=== PATIENT | female | born 1995 | race Caucasian/White ===

== ENCOUNTER 2017-05-28 07:08 | Day surgery (SDC) | payer OTHER ==
[2017-05-28] VITALS (12 sets, daily range): BP systolic 95–147; BP diastolic 53–80; PULSE 74–90; RESP 14–22; Ht 154.9 cm; Wt 132.0 kg
[~2017-05-28] VITALS: Ht 154.9 cm; Wt 132.0 kg
--- NOTE | 2017-05-28 05:46 | HP ---
DATE OF ADMISSION: 05/28/2017 HISTORY OF PRESENT ILLNESS: This 17-year-old female patient seen in the office initially in June 2013 complaining of nasal obstruction and possible sinusitis. The patient treated medically at that time. Recommended to have a CAT scan, which showed chronic sinusitis. Surgery was recommended at that time, however declined. The patient returned to the office January 2017 with increase in symptoms and noted to have obstructive nasal sinus polyposis. The patient was treated with antihistamine, decongestants and systemic hydrocortisone slight shrinkage of polyps. Repeat CAT scan at this time demonstrates severe pansinusitis with involvement of the maxillary and ethmoid sinuses as well as deviated septum. The patient is now admitted to the hospital for corrective nasal sinus surgery. ALLERGIES: ALLERGIES NONE. MEDICATIONS: Synthroid. PAST MEDICAL HISTORY: Medical conditions: Hypothyroid. Prior surgery: Clotting disorders. FAMILY HISTORY, HABITS AND REVIEW OF SYSTEMS: Negative. PHYSICAL EXAMINATION: GENERAL: Well-developed, well-nourished female patient is in no acute distress. HEENT: Head is normocephalic. No masses or deformities. Ears and tympanic membranes normal. Nose: Obstructive and extensive nasal sinus polyposis with septal deviation noted. Oropharynx is clear. NECK: No masses or adenopathy. CHEST: Clear to P and A. HEART: Regular sinus rhythm without murmur. ABDOMEN: Soft. Bowel sounds are normal. No masses or organomegaly. EXTREMITIES: Full range of motion without deformity. NEUROLOGIC: Physiologic. PELVIC/RECTAL: Not done. IMPRESSION: Chronic sinusitis with septal deviation. PLAN:: Admitted for surgery. Dictated By: Shahid Hannah MD /chasity/juvenal /Document#: [id number]
[~2017-05-28 07:08] MED LIST: ACETAMINOPHEN 1000 MG/100 ML IVPB ONE; ONDANSETRON 4 MG INJ ONE
[2017-05-28] MEDS ORDERED: LEVO125T75 PO (08:12)
[2017-05-28] MEDS ORDERED: GLIP-95 PO (08:13)
[2017-05-28] MEDS ORDERED: SITA1TBM7 PO (08:13)
[2017-05-28] MEDS ORDERED: COCAINE 4% 4 ML TOP ONE (08:57)
[2017-05-28] MEDS ORDERED: LIDOCAINE 2%/EPI (MDV) 20ML INJ ONE (08:57)
[2017-05-28] MEDS ORDERED: PROPOFOL 20 ML ONE (09:07)
[2017-05-28] MEDS ORDERED: ROCURONIUM 50 MG INJ ONE (09:07)
[2017-05-28] MEDS ORDERED: LIDOCAINE 2% (SDV) 5 ML INJ ONE (09:07)
[2017-05-28] MEDS ORDERED: DEXAMETHASONE 4 MG/ML 1 ML INJ ONE (09:09)
[2017-05-28] MEDS ORDERED: FENTAnyl 50 MCG/ML VIAL ONE ×3 (09:09→10:29)
[2017-05-28] MEDS ORDERED: LABETALOL HCL 20MG INJ ONE (09:22)
[2017-05-28] MEDS ORDERED: BACITRACIN/POLYMYXIN 28.35 GM OINT TOP ONE (09:37)
[2017-05-28] MEDS ORDERED: NEOMYC/POLYMYX/BACIT 30 GM OINT ONE (09:37)
[2017-05-28] MEDS ORDERED: GLYCOPYRROLATE 0.4 MG INJ ONE (10:13)
[2017-05-28] MEDS ORDERED: NEOSTIGMINE 3 MG/3 ML SYRINGE ONE (10:13)
[2017-05-28] MEDS ORDERED: LABETALOL HCL 20MG INJ IV PRN (10:30)
[2017-05-28] MEDS ORDERED: MEPERIDINE 25 MG INJ IV PRN (10:30)
[2017-05-28] MEDS ORDERED: METOCLOPRAMIDE 10 MG INJ IV PRN (10:30)
[2017-05-28] MEDS ORDERED: hydrALAzine 20 MG INJ IV PRN (10:30)
[2017-05-28] MEDS ORDERED: DIPHENHYDRAMINE 50 MG INJ IV PRN (10:30)
[2017-05-28] MEDS ORDERED: EPHEDrine SULFATE 50 MG/5 ML SYG IV PRN (10:30)
[2017-05-28] MEDS ORDERED: FENTAnyl 50 MCG/ML VIAL IV PRN ×2 (10:30)
[2017-05-28] MEDS ORDERED: OXYCODONE/ACETAMINOPHEN (5/325) TAB PO PRN ×2 (10:30)
[2017-05-28] MEDS ORDERED: ONDANSETRON 4 MG INJ IV PRN (10:30)
[2017-05-28] MEDS ORDERED: HYDROmorphONE (0.2 MG/ML) 10ML SYG IV PRN ×3 (10:30)
[2017-05-28] MEDS: FENTAnyl 50 MCG/ML VIAL IV PRN ×2 (10:42→10:47)
[2017-05-28] MEDS ORDERED: HYDROCODONE/APAP (7.5/325) TAB PO PRN (11:00)
--- NOTE | 2017-06-01 04:46 | OPR ---
DATE OF OPERATION: 05/28/2017 PREOPERATIVE DIAGNOSES: Septal deviation, turbinate hypertrophy, sinonasal polyposis. POSTOPERATIVE DIAGNOSES: Septal deviation, turbinate hypertrophy, sinonasal polyposis. PROCEDURES PERFORMED: Septoplasty with turbinate reduction, nasal polypectomy, bilateral endoscopic sinus surgery carried out using the microdebrider as follows: Anterior posterior ethmoid endoscopic sinus surgery and bilateral maxillary sinus surgery, bilateral frontal sinus surgery. ESTIMATED BLOOD LOSS: Was 5-10 mL. COMPLICATIONS: None. OPERATIVE PROCEDURE: The patient was brought to the operating room under parenteral sedation, general oral endotracheal anesthesia with the patient in the supine position, sterile sheets and drapes applied. The nose was anesthetized topically with 5 percent cottonoid cocaine and xylocaine 1 percent, epinephrine 1:100,000 injectable. The polyps were removed from both middle meatus using snare and Kristopher forceps. The inferior turbinate bones were then lightly crushed and outfractured. A left septal hemitransfixion incision was made. Septal flaps were elevated exposing the quadrilateral cartilage and the perpendicular plate of the ethmoid and vomer bones. The quadrilateral was detached from the crest of the premaxilla and from the bony cartilaginous junction. Vertical stripes were carried out anterior to posterior to correct cartilaginous obstruction. A vomerine spur on the left was mobilized with a Walsham forceps and brought to the midline. The septal compartment was then suctioned, and the incision closed with interrupted 4-0 chromic. Then using the microdebrider on the left side extensive polyposis was carried out with removal of polyps from the middle meatus, anterior and posterior ethmoid sinus cells, nasal frontal recess, and the ostium of the left maxillary sinus. A comparable procedure was then performed on the right side again using the microdebrider with extensive polypectomy and removal of polyps from the anterior posterior ethmoid sinuses, nasal frontal recess and right maxillary sinus. The nose was then suctioned. The sinus cavities were packed with bacitracin-impregnated nasal pore sponge. A drip pad was applied and the procedure terminated. The patient was awakened, extubated in the operating room and returned to recovery in excellent condition. Dictated By: Shahid Hannah MD /chasity/cata /Document#: [id number]
== END 2017-05-28 12:15 | disposition home or self-care (01) ==
LOC: SDS 07:08
PROVIDERS: ATTEND Otolaryngology Otolaryngology/Facial Plastic Surgery
DX: J34.2 Deviated nasal septum (principal); J34.3 Hypertrophy of nasal turbinates; E03.9 Hypothyroidism, unspecified; J32.8 Other chronic sinusitis
CPT/HCPCS: 30140; 30520; 31255; 31256; 31276; 82962; 84703; 88304; J0131; J1100; J1170; J2405; J2710; J3010; Z7512; Z7610